=== PATIENT | female | born 1990 | race Two or more races ===

== ENCOUNTER 2018-12-03 12:05 | Inpatient (IN) | payer OTHER ==
[~2018-12-03] VITALS: Ht 154.9 cm; Wt 2.7 kg
[2019-01-01] MEDS ORDERED: PRENATAL TABLE1 EAC1 PO (01:12)
== END 2019-01-04 12:57 | disposition home or self-care (01) | DRG 788 ==
LOC: LDR 01-01 00:09 → OB/GYN 01-01 00:09
PROVIDERS: ADMIT Obstetrics & Gynecology
PROC: 3E033VJ Introduction of Other Hormone into Peripheral Vein, Percutaneous Approach (ICD-10-PCS; 2019-01-01)
PROC: 4A1HXCZ Monitoring of Products of Conception, Cardiac Rate, External Approach (ICD-10-PCS; 2019-01-01)
PROC: 10D00Z1 Extraction of Products of Conception, Low, Open Approach (ICD-10-PCS; principal; 2019-01-01 15:00)
DX: O82 Encounter for cesarean delivery without indication (principal); O61.0 Failed medical induction of labor; O65.8 Obstructed labor due to other maternal pelvic abnormalities; Z3A.39 39 weeks gestation of pregnancy; Z37.0 Single live birth